=== PATIENT | male | born 1945 | race Caucasian/White ===

== ENCOUNTER → 2018-05-18 09:26 | Outpatient (CLI) | payer OTHER, SELFPAY ==
--- NOTE | 2018-05-18 09:33 | DI.RAD.S_ITS ---
PROCEDURE: XR CHEST 2V INDICATIONS: SHORTNESS OF BREATH TECHNIQUE: 2 views of the chest were acquired. COMPARISON: [facility], , CHEST 1 VIEW, 01/08/2016, 13:36. FINDINGS: Surgical changes and devices: There is a left Port-A-Cath, tip of which is projected over the SVC.. Lungs and pleura: No pleural effusions or pneumothorax. Lungs are clear. Mediastinum: Mediastinal contours are normal. Heart size is normal. Bones and chest wall: No suspicious bony abnormalities. Soft tissues appear unremarkable. IMPRESSION: No acute cardiopulmonary findings. Dictated by: Martha Elliott M.D. on 05/18/2018 at 12:16 Approved by: Martha Elliott M.D. on 05/18/2018 at 12:17
[2018-05-18 10:55] LABS: INR 1.1 (0.9-1.3); Prothrombin Time 11.7 SECONDS (10.1-12.7)
[2018-05-18 11:45] LABS: Vitamin B12 317 pg/mL (239-931)
== END ==
PROVIDERS: PCP Internal Medicine; Visit Provider Internal Medicine
DX: Z79.899 Other long term (current) drug therapy (principal); I48.1 Persistent atrial fibrillation; E53.8 Deficiency of other specified B group vitamins; R06.02 Shortness of breath
CPT/HCPCS: 36415; 71046; 82607; 84443; 85610

== ENCOUNTER → 2018-08-23 13:17 | Outpatient (CLI) | payer OTHER, SELFPAY ==
[2018-08-23 13:56] LABS: INR 5.4 (0.9-1.3); Prothrombin Time 60.4 SECONDS (10.1-12.7)
== END ==
PROVIDERS: Family Provider Internal Medicine Geriatric Medicine; Visit Provider Specialist
DX: I48.1 Persistent atrial fibrillation (principal)
CPT/HCPCS: 36415; 85610

== ENCOUNTER → 2018-11-09 12:07 | Outpatient (CLI) | payer OTHER, SELFPAY ==
--- NOTE | 2018-11-09 | DI.RAD.S_ITS ---
PROCEDURE: XR KNEE RT 3V INDICATIONS: BILATERAL KNEE PAIN TECHNIQUE: 3 views of the knee were acquired. COMPARISON: [facility], , KNEE 3V LEFT, 11/16/2012, 9:32. FINDINGS: Bones: No fractures or dislocations. No suspicious bony lesions. There is a mild degree of lateral compartment joint space narrowing consistent with degenerative osteoarthritis, equivalent to that seen at the patellofemoral joint Soft tissues: Small joint effusion. No suspicious soft tissue calcifications. 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 Small joint effusion. Dictated by: Guy Connelly M.D. on 11/09/2018 at 13:23 Approved by: Guy Connelly M.D. on 11/09/2018 at 13:24
== END ==
PROVIDERS: Family Provider Internal Medicine Geriatric Medicine; PCP Internal Medicine Infectious Disease; Visit Provider Internal Medicine Infectious Disease
DX: M25.561 Pain in right knee (principal); M25.562 Pain in left knee; G89.29 Other chronic pain; M17.11 Unilateral primary osteoarthritis, right knee
CPT/HCPCS: 73562

== ENCOUNTER → 2018-11-09 12:13 | Outpatient (CLI) | payer OTHER, SELFPAY ==
--- NOTE | 2018-11-09 | DI.RAD.S_ITS ---
PROCEDURE: XR KNEE LT 3V INDICATIONS: CHRONIC PAIN OF BOTH KNEES TECHNIQUE: 3 views of the knee were acquired. COMPARISON: [facility], , KNEE 3V LEFT, 11/16/2012, 9:32. FINDINGS: Bones: No fractures or dislocation but there is moderately severe medial compartment degenerative osteoarthritic joint space narrowing, and also a moderate degree of degenerative osteoarthritis at the lateral compartment and mild degenerative osteoarthritis at the patellofemoral joint. No suspicious bony lesions. Soft tissues: No joint effusion. No suspicious soft tissue calcifications. IMPRESSION: No trauma found. Tricompartmental degenerative knee joint osteoarthritis is most pronounced at the medial compartment, but no joint effusion or intra-articular loose body is found. Dictated by: Guy Connelly M.D. on 11/09/2018 at 13:24 Approved by: Guy Connelly M.D. on 11/09/2018 at 13:25
[2018-11-09 13:15] LABS: Add Manual Diff / Slide Review NO; Basophils Absolute Auto 0 /uL (0-100); Basophils Percent Auto 0.6 % (0-2); Eosinophils Absolute Auto 100 /uL (0-450); Hematocrit 38.5 % (41-53); Hemoglobin 12.7 g/dL (13.5-17.5); Lymphocytes Absolute Auto 800 /uL (1100-4500); Lymphocytes Percent Auto 18.7 % (25-40); Mean Corpuscular HGB Conc 32.9 % (30-36); Mean Corpuscular Volume 100.4 fL (80-100); Monocytes Absolute Auto 300 /uL (0-900); Monocytes Percent Auto 7.4 % (3-14); Neutrophils Absolute Auto 3100 /uL (1500-7000); Neutrophils Percent Auto 71.3 % (50-75); Platelet Count 153 X10^3/uL (150-400); Red Blood Cell Count 3.84 X10^6/uL (4.5-5.9); Red Cell Distribution Width 14.4 % (11.6-14.8); White Blood Cell Count 4.4 X10^3/uL (4.5-11.0)
[2018-11-09 15:49] LABS: Folate 9.4 ng/mL (2.76-20.0); Vitamin B12 357 pg/mL (239-931)
== END ==
PROVIDERS: Family Provider Internal Medicine Geriatric Medicine; PCP Internal Medicine Infectious Disease; Visit Provider Internal Medicine
DX: D51.9 Vitamin B12 deficiency anemia, unspecified (principal)
CPT/HCPCS: 36415; 73562; 82607; 82746; 85025

== ENCOUNTER 2018-11-13 09:46 | Emergency (ER) | payer OTHER, SELFPAY ==
--- NOTE | 2018-11-13 09:51 | DI.RAD.S_ITS ---
PROCEDURE: XR CHEST 2V INDICATIONS: cough for a week TECHNIQUE: 2 views of the chest were acquired. COMPARISON: [facility], CR, XR CHEST 2V, 05/18/2018, 9:48. FINDINGS: Surgical changes and devices: Left Port-A-Cath is unchanged. Lungs and pleura: No pleural effusions or pneumothorax. Lungs are clear. Mediastinum: Mediastinal contours are normal. Heart size is normal. Bones and chest wall: No suspicious bony abnormalities. Soft tissues appear unremarkable. IMPRESSION: No acute cardiopulmonary findings. Dictated by: Martha Elliott M.D. on 11/13/2018 at 10:02 Approved by: Martha Elliott M.D. on 11/13/2018 at 10:02
[2018-11-13 09:59] VITALS: PULSE 76; RESP 20; TEMP 36.6; O2SAT 97; BMI 48.5
[2018-11-13 10:03] VITALS: BP 156/85
--- NOTE | 2018-11-13 11:26 | ED_ITS ---
HPI - URI/Sore Throat General Chief Complaint: Upper Respiratory Symptoms Stated Complaint: BAD COUGH FOR A WEEK Time Seen by Provider: 11/13/18 09:51 Source: patient Mode of arrival: ambulatory Limitations: no limitations History of Present Illness HPI Narrative: Patient is a 73-year-old male here for evaluation of a cough that he has had for the past week. He states that his symptoms did start with a upper respiratory infection to include sinus congestion and a sore throat. He states that most of those symptoms have improved however still having some of the congestion. He states he still has the cough. Worse at night. His mother is in the hospital and was concerned about potentially exposing her to something. has not tried anything for his symptoms prior to arrival. Related Data Home Medications Medication Instructions Recorded Confirmed cyanocobalamin (vitamin B-12) 1,000 mcg IM QMONTH #0 09/05/17 Previous Rx's Medication Instructions Recorded ferrous sulfate [Iron (ferrous 325 mg PO TID #90 tab 09/06/17 sulfate)] warfarin [Coumadin] 0 PO QDAY #30 tab 09/06/17 azithromycin See Label Instructions .ROUTE 11/13/18 .COMPLEX #6 tab benzonatate [Tessalon Perles] 100 mg PO TID PRN #20 cap 11/13/18 codeine-guaifenesin [Guaifenesin 10 ml PO Q4-6H PRN #118 ml 11/13/18 AC] Allergies Allergy/AdvReac Type Severity Reaction Status Date / Time No Known Drug Allergies Allergy Verified 11/13/18 10:03 Review of Systems Constitutional Denies fever(s) and Denies headache(s) Eyes Denies change in vision ENT Ears, Nose, Mouth, and Throat: Denies headache(s), Reports nasal congestion, Denies nasal discharge, Denies tinnitus, Reports sinus pressure and Denies sore throat Cardiovascular Denies chest pain, Denies dyspnea and Denies dyspnea on exertion Respiratory Reports chest congestion, Reports cough, Denies dyspnea, Denies dyspnea on exertion and Denies wheezing Gastrointestinal Gastrointestinal: Denies abdominal pain, Denies nausea and Denies vomiting Integumentary/Breasts Denies rash Neurologic Denies behavioral changes and Denies headache(s) Psychiatric Denies behavioral changes Hematologic/Lymphatic Comments: On anticoagulation Allergic/Immunologic Denies wheezing PFSH Medical History Atrial fibrillation (Acute) Surgical History No pertinent past surgical history (Acute) Social History Smoking Status: Former smoker Exam Initial Vital Signs Initial Vital Signs: Vital Signs Temperature 97.8 F 11/13/18 09:59 Pulse Rate 76 11/13/18 09:59 Respiratory Rate 20 11/13/18 09:59 Pulse Oximetry 97 11/13/18 09:59 Const General: cooperative, healthy appearing, comfortable, well developed, well groomed and No acute distress Orientation: alert, awake and oriented x3 HENMT Head: normal to inspection and normocephalic Resp Effort & Inspection: normal respiratory effort Auscultation: clear to auscultation bilaterally Skin Lesions: no lesions Rashes: no rashes Neuro General: alert, awake and oriented x3 Extrem General: normal to inspection and capillary refill normal Course Orders Ordered: ED Orders 11/13/18 09:51 XR chest 2V Stat Vital Signs - 8 hr 11/13/18 12:10 Temperature 97.1 F L Pulse Rate 67 Respiratory Rate 18 Blood Pressure 125/83 Pulse Oximetry 97 MDM - URI/Sore Throat Imaging Data Chest x-ray: Radiologist's impression: PROCEDURE: XR CHEST 2V INDICATIONS: cough for a week TECHNIQUE: 2 views of the chest were acquired. COMPARISON: [facility], , XR CHEST 2V, 05/18/2018, 9:48. FINDINGS: Surgical changes and devices: Left Port-A-Cath is unchanged. Lungs and pleura: No pleural effusions or pneumothorax. Lungs are clear. Mediastinum: Mediastinal contours are normal. Heart size is normal. Bones and chest wall: No suspicious bony abnormalities. Soft tissues appear unremarkable. IMPRESSION: No acute cardiopulmonary findings. Dictated by: Martha Elliott M.D. on 11/13/2018 at 10:02 Approved by: Martha Elliott M.D. on 11/13/2018 at 10:[address] [facility] Narrative Medical decision making narrative: chest x-ray shows no signs of a definitive pneumonia. He has had approximately A week of symptoms. He has not tried any decongestants up to this point. after discussion with the patient. Informed him that I would recommend that he start with decongestants. Will also send him home with cough suppressant. asked him to give the symptoms of try for the next couple days and if his symptoms worsen or do not improve that he could fill the antibiotics and start taking them as directed. Patient expressed understanding and agreement this plan. He is given return precautions. Discharge Plan Departure Patient Disposition: Home Clinical Impression: Cough, Bronchitis Discharge Date/Time: 11/13/18 12:09 Interventions: ED Discharge Assessment Last Done: 11/13/18 12:10 Instructions: Cough (Alternative Therapy), Acute Bronchitis, Cough Activity Restrictions/Additional Instructions: Recommend you do the cough suppressant medicines for the next couple days. I would not expect this to completely resolve your cough but it should improve it. If your symptoms worsen or he develop new symptoms then you can start the antibiotics. Return to the emergency department for any new or worsening symptoms Prescriptions: New azithromycin 250 mg tablet See Label Instructions .ROUTE .COMPLEX Qty: 6 RF: 0 benzonatate [Tessalon Perles] 100 mg capsule 100 mg PO TID PRN (Reason: cough) Qty: 20 RF: 0 codeine-guaifenesin [Guaifenesin AC] 10-100 mg/5 mL liquid 10 ml PO Q4-6H PRN (Reason: cough) Qty: 118 RF: 0 No Action cyanocobalamin (vitamin B-12) Vitamin B-12 solution 1,000 mcg IM QMONTH Qty: 0 RF: 0 warfarin [Coumadin] 5 MG tablet PO QDAY Qty: 30 RF: 0 ferrous sulfate [Iron (ferrous sulfate)] 325 MG tablet 325 mg PO TID Qty: 90 RF: 0
[2018-11-13 12:10] VITALS: BP 125/83; PULSE 67; RESP 18; TEMP 36.2; O2SAT 97
== END 2018-11-13 12:09 | disposition home or self-care (01) ==
PROVIDERS: Emergency Provider Emergency Medicine; Family Provider Internal Medicine Geriatric Medicine; PCP Internal Medicine Infectious Disease
DX: J40 Bronchitis, not specified as acute or chronic (principal)
CPT/HCPCS: 71046; 99282; 99283

== ENCOUNTER → 2019-01-05 08:04 | Outpatient (CLI) | payer OTHER, SELFPAY ==
--- NOTE | 2019-01-05 | DI.RAD.S_ITS ---
PROCEDURE: XR THORACIC SPINE 3V INDICATIONS: ACUTE MIDLINE THORACIC BACK PAIN TECHNIQUE: 3 views of the thoracic spine were acquired. COMPARISON: None. FINDINGS: Bones: No fractures or dislocations. No suspicious bony lesions. Spinal degenerative change with flowing anterior osteophytes consistent with diffuse idiopathic skeletal stenosis. Soft tissues: No paravertebral stripe thickening. IMPRESSION: No acute bony abnormality of the thoracic spine. Dictated by: Bud Lyons M.D. on 01/05/2019 at 8:42 Approved by: Bud Lyons M.D. on 01/05/2019 at 8:43
== END ==
PROVIDERS: PCP Internal Medicine Infectious Disease; Visit Provider Internal Medicine
DX: M54.6 Pain in thoracic spine (principal)
CPT/HCPCS: 72072

== ENCOUNTER → 2020-03-28 17:03 | Outpatient (CLI) | payer OTHER, SELFPAY | PROVIDERS: Referring Provider Orthopaedic Surgery; Visit Provider Orthopaedic Surgery | DX: S22.059A Unspecified fracture of T5-T6 vertebra, initial encounter for closed fracture (principal); Z53.20 Procedure and treatment not carried out because of patient's decision for unspecified reasons ==

== ENCOUNTER → 2020-07-31 15:49 | Outpatient (CLI) | payer OTHER, SELFPAY ==
[2020-07-31 17:22] LABS: BUN Creatinine Ratio 21.6 (6-22); Blood Urea Nitrogen 29 mg/dL (9-20); Calcium 9.3 mg/dL (8.4-10.2); Carbon Dioxide 27 mmol/L (22-32); Chloride 105 mmol/L (98-107); Estimated Glomerular Filt Rate 52.3 mL/min (>60); Glucose 146 mg/dL (80-110); HEMOLYSIS < 15 (0-50); Potassium 4.1 mmol/L (3.4-5.1); Sodium 139 mmol/L (137-145)
== END ==
PROVIDERS: Referring Provider Physician Assistant; Visit Provider Physician Assistant
DX: Z51.81 Encounter for therapeutic drug level monitoring (principal); Z79.899 Other long term (current) drug therapy; I48.0 Paroxysmal atrial fibrillation
CPT/HCPCS: 36415; 80048

== ENCOUNTER → 2020-09-14 12:43 | Outpatient (CLI) | payer OTHER, SELFPAY ==
[2020-09-14 13:49] LABS: Hemoglobin A1C% w Est Avg Glu 7.9 % (4.0-6.0)
[2020-09-14 14:00] LABS: HEMOLYSIS < 15 (0-50); Iron 62 ug/dL (49-181)
[2020-09-14 14:04] LABS: C-Reactive Protein Quant 0.7 mg/dL (<1.0)
[2020-09-14 14:05] LABS: Erythrocyte Sedimentation Rate 18 MM/HR (0-15)
[2020-09-14 14:06] LABS: Rheumatoid Factor < 8.6 IU/mL (<12.0)
[2020-09-14 14:10] LABS: Percent Iron Saturation 16 % (20-50); Total Iron Binding Capacity 396 ug/dL (261-462); Transferrin 305 mg/dL (206-381)
[2020-09-14 14:32] LABS: Thyroid Stimulating Hormone 6.28 uIU/mL (0.47-4.68)
[2020-09-14 14:37] LABS: Ferritin 9 ng/mL (18-464)
[2020-09-14 15:07] LABS: Folate 10.8 ng/mL (2.76-20.0); Vitamin B12 288 pg/mL (239-931)
[2020-09-14 15:24] LABS: Vitamin D 25 Hydroxy (D3) 21.1 ng/mL (30.0-100.0)
[2020-09-15 07:49] LABS: Immunoglobulin A 387 mg/dL (61-437); Immunoglobulin G, Quantitative 866 mg/dL (603-1613)
[2020-09-17 20:51] LABS: CCP Antibodies IgG/IgA 7 units (0-19)
[2020-09-18 01:42] LABS: Vitamin B1 128.6 nmol/L (66.5-200.0)
[2020-09-18 12:29] LABS: Albumin 3.1 g/dL (2.9-4.4); Alpha-1-Globulin 0.2 g/dL (0.0-0.4); Alpha-2-Globulin 0.7 g/dL (0.4-1.0); Globulin Total 3.1 g/dL (2.2-3.9); Protein, Total 6.2 g/dL (6.0-8.5)
[2020-09-21 12:11] LABS: 1,25-Dihydroxy, Vitamin D-2 <10 pg/mL (.)
== END ==
PROVIDERS: Referring Provider Internal Medicine; Visit Provider Internal Medicine
DX: G62.9 Polyneuropathy, unspecified (principal); E53.8 Deficiency of other specified B group vitamins
CPT/HCPCS: 36415; 82306; 82607; 82652; 82728; 82746; 82784; 83036; 83540; 83550; 84155; 84165; 84425; 84443; 85651; 86140; 86200; 86430; 86592

== ENCOUNTER → 2021-01-26 10:31 | Outpatient (CLI) | payer OTHER, SELFPAY ==
[2021-01-26 12:11] LABS: Hemoglobin A1C% w Est Avg Glu 6.9 % (4.0-6.0)
[2021-01-26 12:16] LABS: HEMOLYSIS < 15 (0-50)
[2021-01-26 12:30] LABS: Erythrocyte Sedimentation Rate 14 MM/HR (0-15)
[2021-01-26 12:33] LABS: Total Iron Binding Capacity 414 ug/dL (261-462); Transferrin 320 mg/dL (206-381)
[2021-01-26 12:39] LABS: Vitamin D 25 Hydroxy (D3) 23.8 ng/mL (30.0-100.0)
[2021-01-26 12:53] LABS: Thyroid Stimulating Hormone 5.92 uIU/mL (0.47-4.68)
[2021-01-27 13:09] LABS: Iron 49 ug/dL (49-181); Percent Iron Saturation 12 % (20-50)
[2021-01-27 13:12] LABS: C-Reactive Protein Quant 0.9 mg/dL (<1.0)
[2021-01-27 14:09] LABS: RPR Screen Non Reactive (Non Reactive)
[2021-01-27 14:30] LABS: Folate 8.8 ng/mL (2.76-20.0); Vitamin B12 245 pg/mL (239-931)
[2021-01-29 13:55] LABS: Albumin 3.4 g/dL (2.9-4.4); Alpha-1-Globulin 0.2 g/dL (0.0-0.4); Alpha-2-Globulin 0.6 g/dL (0.4-1.0); Globulin Total 2.9 g/dL (2.2-3.9); Protein, Total 6.3 g/dL (6.0-8.5)
[2021-01-29 22:51] LABS: CCP Antibodies IgG/IgA 8 units (0-19)
[2021-01-31 18:27] LABS: Vitamin B1 102.3 nmol/L (66.5-200.0)
[2021-02-07 17:49] LABS: 1,25-Dihydroxy, Vitamin D-2 <10 pg/mL (.)
== END ==
PROVIDERS: Referring Provider Internal Medicine; Visit Provider Internal Medicine
DX: G62.9 Polyneuropathy, unspecified (principal); E53.8 Deficiency of other specified B group vitamins
CPT/HCPCS: 36415; 82306; 82607; 82652; 82746; 83036; 83540; 83550; 84155; 84165; 84425; 84443; 85651; 85652; 86140; 86200; 86431; 86592

== ENCOUNTER 2021-03-21 12:37 | Emergency (ER) | payer OTHER, SELFPAY ==
[2021-03-21 12:46] VITALS: BP 137/79; PULSE 60; RESP 14; TEMP 37.1; O2SAT 99; BMI 47.0
[2021-03-21 12:52] VITALS: PULSE 70
--- NOTE | 2021-03-21 12:56 | ED_ITS ---
HPI - General Adult General Chief complaint: Extremity Problem,Nontraumatic Stated complaint: Right Foot Somethings Wrong Swelling and Pain Time Seen by Provider: 03/21/21 12:46 Source: patient Mode of arrival: Wheelchair Limitations: no limitations History of Present Illness HPI narrative: Patient is a 75-year-old male here for evaluation of redness and discomfort to the top of his right foot. It is been occurring for at least the past several weeks if not longer. He has seen his primary doctor for this. He states that his primary doctor has ordered labs and an x-ray however there was some issue with getting this approved with insurance. He was sent to the emergency department for further evaluation. He does have lower extremity swelling which is not new. He is on Lasix. Is also on warfarin. He denies any trauma. He states that his primary doctor was concerned about a potential stress fracture. He states over the past couple days his discomfort is worsened to the point were he is having problems walking. Related Data Home Medications Medication Instructions Recorded Confirmed furosemide 20 mg PO QAM 03/21/21 03/21/21 warfarin See Rx Instructions .ROUTE .COMPLEX 03/21/21 03/21/21 Previous Rx's Medication Instructions Recorded cephalexin 500 mg PO QID 5 Days #20 cap 03/21/21 Allergies Allergy/AdvReac Type Severity Reaction Status Date / Time No Known Drug Allergies Allergy Verified 03/21/21 12:49 Review of Systems Constitutional Constitutional: Denies headache(s) ENT Ears, Nose, Mouth, and Throat: Denies headache(s) Cardiovascular Cardiovascular: Denies chest pain and Denies dyspnea Respiratory Respiratory: Denies dyspnea Gastrointestinal Gastrointestinal: Denies abdominal pain Integumentary/Breasts Comments: Redness and swelling to the right foot Neurologic Neurologic: Denies headache(s) Comments: Patient has neuropathy with this is not new Hematologic/Lymphatic On Anticoagulants: No Allergic/Immunologic Allergic/Immunologic: Reports system reviewed and no additional complaints, except as documented Patient History Medical History Atrial fibrillation Surgical History (Updated 11/13/18 @ 18:33 by Jag Gaytan DO) No pertinent past surgical history Social History Smoking Status: Former smoker Smoking Status: Former smoker alcohol intake frequency: 0-2 drinks per day Substance Use Type: does not use Exam Initial Vital Signs Initial Vital Signs: Vital Signs Temperature 98.8 F 03/21/21 12:46 Pulse Rate 60 03/21/21 12:46 Respiratory Rate 14 03/21/21 12:46 Blood Pressure 137/79 03/21/21 12:46 Pulse Oximetry 99 03/21/21 12:46 Const General: cooperative HENMT Head: normal to inspection and normocephalic Cardio Pulses: dorsalis pedis present bilaterally GI Palpation: soft Skin Other: Patient does have redness to the dorsum of the right foot. There is a 1/4 cm area of whiteness right in the center that appears to be more of a callus. It is warm to the touch. Patient also has some redness to the inside of the left foot were consistent with venous stasis changes. Neuro General: patient alert and patient awake Cognition: normal cognition Extrem General: edema Psych Appearance: grossly normal Course Orders Ordered: ED Orders 03/21/21 12:56 XR foot RT min 3V Stat Vital Signs Vital signs: Vital Signs - 8 hr 03/21/21 13:58 Pulse Rate 51 L Respiratory Rate 16 Blood Pressure 130/76 Pulse Oximetry 98 Medical Decision Making Imaging Data Extremity x-ray #1: Radiologist's Impression: [address] [id number] ReportSigned Patient: Saúl Wilson RMR#: [id number]: 7Acct:[id number]/Sex: 75 / MDate of Service: 03/21/21Loc: EDAccession Number: [id number] Procedure: XR foot RT min 3V Ordering Provider: Jag Gaytan D.O. PROCEDURE: XR FOOT RT MIN 3V INDICATIONS: Neuropathy, midfoot pain TECHNIQUE: 3 views of the foot were acquired. COMPARISON: None. FINDINGS: Bones: No fractures or dislocations. No suspicious bony lesions. Periarticular osteophyte formation at the tibiotalar, talonavicular, navicular cuneiform joints, as well as the 1st metatarsophalangeal joint, and the interphalangeal joints of the digits. Soft tissues: No tibiotalar joint effusion. Achilles tendon appears normal. IMPRESSION: Osteoarthritis. No acute fracture. No osseous lesion. If symptoms and/or clinical suspicion for pathology persist, further assessment with repeat, or advanced imaging (e.g., CT, MRI, or bone scan) may be helpful for further assessment. Dictated by: Eulalia Knutson M.D. on 03/21/2021 at 13:29 Approved by: Eulalia Knutson M.D. on 03/21/2021 at 13:30 [facility] Narrative Medical decision making narrative: The x-ray does not show any signs of fracture. He does have chronic lower extremity edema. The pain and redness the top of his right foot is been going on for least the past couple weeks but has been worsening over the past couple days. The redness on his left foot appears to be chronic venous stasis changes. His right foot redness could also be this however it is warm to the touch. I have low suspicion for abscess. The white area on the top of his what appears to be more of a callus. He does have neuropathy. Given his presentation, the warmth, redness, neuropathy, worsening discomfort I do feel that a course of antibiotics would be warranted in his case just to confirm that this is not an infection. Will start him on some antibiotics. He is instructed to contact his primary provider for follow-up. Expressed understanding and agreement. Discharge Plan Departure Patient Disposition: Home Clinical Impression: Cellulitis Instructions: DI for Cellulitis -- Adult Activity Restrictions/Additional Instructions: Like we discussed I am not 100% convinced that the redness on your foot is and infection however starting you on an antibiotic to see if there is any improvement would be an appropriate next step. Start taking it as directed. Contact your primary provider for follow-up. Return to the emergency department for any new or worsening symptoms. Prescriptions: New cephalexin 500 mg capsule 500 mg PO QID 5 Days Qty: 20 RF: 0 No Action warfarin 5 mg tablet See Rx Instructions .ROUTE .COMPLEX RF: 0 furosemide 20 mg Tablet 20 mg PO QAM RF: 0
[2021-03-21 13:58] VITALS: BP 130/76; PULSE 51; RESP 16; O2SAT 98
== END 2021-03-21 13:59 | disposition home or self-care (01) ==
PROVIDERS: Emergency Provider Emergency Medicine
DX: L03.115 Cellulitis of right lower limb (principal)
CPT/HCPCS: 73630; 99283

== ENCOUNTER → 2021-04-05 12:03 | Outpatient (CLI) | payer OTHER, SELFPAY ==
[2021-04-05 13:59] LABS: Cholesterol 142 mg/dL (140-199); HDL Cholesterol 52 mg/dL (40-60); HEMOLYSIS 18 (0-50); Iron 59 ug/dL (49-181); LDL Cholesterol Calculated 64 mg/dL (<100); Triglycerides 128 mg/dL (35-150)
[2021-04-05 14:10] LABS: Percent Iron Saturation 18 % (20-50); Total Iron Binding Capacity 334 ug/dL (261-462); Transferrin 253 mg/dL (206-381)
[2021-04-05 14:32] LABS: Thyroid Stimulating Hormone 4.32 uIU/mL (0.47-4.68)
[2021-04-05 15:06] LABS: Folate 8.4 ng/mL (2.76-20.0); Vitamin B12 257 pg/mL (239-931)
[2021-04-11 14:36] LABS: Vitamin B1 112.4 nmol/L (66.5-200.0)
== END ==
PROVIDERS: Podiatrist; PCP Internal Medicine; Referring Provider Internal Medicine; Visit Provider Internal Medicine
DX: M79.89 Other specified soft tissue disorders (principal); E11.9 Type 2 diabetes mellitus without complications; E66.01 Morbid (severe) obesity due to excess calories; Z68.42 Body mass index [BMI] 45.0-49.9, adult
CPT/HCPCS: 36415; 80061; 82607; 82746; 83036; 83540; 83550; 84425; 84443; 84550

== ENCOUNTER → 2021-07-25 11:02 | Outpatient (CLI) | payer OTHER, SELFPAY ==
[2021-07-25 11:52] LABS: Add Manual Diff / Slide Review NO; Basophils Absolute Auto 0 /uL (0-100); Basophils Percent Auto 0.7 % (0-2); Eosinophils Absolute Auto 100 /uL (0-450); Eosinophils Percent Auto 1.2 % (2-4); Hematocrit 38.4 % (41-53); Hemoglobin 12.4 g/dL (13.5-17.5); Lymphocytes Absolute Auto 1100 /uL (1100-4500); Mean Corpuscular HGB Conc 32.3 % (30-36); Mean Corpuscular Hemoglobin 30.3 PG (26-34); Mean Corpuscular Volume 93.8 fL (80-100); Monocytes Absolute Auto 300 /uL (0-900); Monocytes Percent Auto 6.6 % (3-14); Neutrophils Absolute Auto 3100 /uL (1500-7000); Neutrophils Percent Auto 67.5 % (50-75); Platelet Count 175 X10^3/uL (150-400); Red Blood Cell Count 4.09 X10^6/uL (4.5-5.9); Red Cell Distribution Width 16.5 % (11.6-14.8); White Blood Cell Count 4.5 X10^3/uL (4.5-11.0)
[2021-07-25 12:49] LABS: Alanine Aminotransferase 16 IU/L (<50); Albumin 3.6 g/dL (3.5-5.0); Albumin Globulin Ratio 1.4 (1.0-2.8); Alkaline Phosphatase 94 U/L (38-126); Aspartate Aminotransferase 19 IU/L (17-59); BUN Creatinine Ratio 19.2 (6-22); Bilirubin Total 0.3 mg/dL (0.2-1.3); Blood Urea Nitrogen 25 mg/dL (9-20); Calcium 8.9 mg/dL (8.4-10.2); Carbon Dioxide 27 mmol/L (22-32); Chloride 106 mmol/L (98-107); Globulin 2.6 g/dL (1.7-4.1); Glucose 198 mg/dL (80-110); HEMOLYSIS < 15 (0-50); Potassium 4.1 mmol/L (3.4-5.1); Sodium 139 mmol/L (137-145); Total Protein 6.2 g/dL (6.3-8.2)
[2021-07-25 13:13] LABS: TSH w/ Reflex to FT4 4.69 uIU/mL (0.47-4.68)
[2021-07-25 13:59] LABS: Free T4, Direct Thyroxine 1.32 ng/dL (0.78-2.19)
== END ==
PROVIDERS: PCP Internal Medicine; Referring Provider Internal Medicine; Visit Provider Internal Medicine
DX: R61 Generalized hyperhidrosis (principal)
CPT/HCPCS: 36415; 80053; 84439; 84443; 85025

== ENCOUNTER 2021-12-05 14:01 | Emergency (ER) | payer OTHER, SELFPAY ==
[2021-12-05] VITALS (8 sets, daily range): BP systolic 143–158; BP diastolic 71–80; PULSE 59–66; RESP 18; TEMP 36.1; O2SAT 95–99; BMI 49.3
[2021-12-05 14:48] LABS: Prothrombin Time 22.3 SECONDS (10.1-12.7)
[2021-12-05 14:49] LABS: Add Manual Diff / Slide Review NO; Basophils Absolute Auto 0 /uL (0-100); Basophils Percent Auto 0.7 % (0-2); Eosinophils Absolute Auto 100 /uL (0-450); Eosinophils Percent Auto 1.2 % (2-4); Hematocrit 34.2 % (41-53); Lymphocytes Absolute Auto 800 /uL (1100-4500); Lymphocytes Percent Auto 13.3 % (25-40); Mean Corpuscular HGB Conc 32.1 % (30-36); Mean Corpuscular Hemoglobin 30.4 PG (26-34); Mean Corpuscular Volume 94.6 fL (80-100); Monocytes Absolute Auto 400 /uL (0-900); Monocytes Percent Auto 7.4 % (3-14); Neutrophils Absolute Auto 4500 /uL (1500-7000); Neutrophils Percent Auto 77.4 % (50-75); Platelet Count 184 X10^3/uL (150-400); Red Blood Cell Count 3.61 X10^6/uL (4.5-5.9); Red Cell Distribution Width 15.4 % (11.6-14.8); White Blood Cell Count 5.8 X10^3/uL (4.5-11.0)
[2021-12-05 14:50] LABS: PTT Partial Thromboplastin Tim 38 SECONDS (26.4-36.2)
[2021-12-05 14:52] LABS: Alanine Aminotransferase 19 IU/L (<50); Albumin 3.6 g/dL (3.5-5.0); Albumin Globulin Ratio 1.2 (1.0-2.8); Alkaline Phosphatase 104 U/L (38-126); Aspartate Aminotransferase 42 IU/L (17-59); BUN Creatinine Ratio 11.7 (6-22); Bilirubin Total 0.5 mg/dL (0.2-1.3); Blood Urea Nitrogen 20 mg/dL (9-20); Calcium 8.7 mg/dL (8.4-10.2); Carbon Dioxide 30 mmol/L (22-32); Chloride 107 mmol/L (98-107); Estimated Glomerular Filt Rate 39.3 mL/min (>60); Globulin 3.1 g/dL (1.7-4.1); Glucose 140 mg/dL (80-110); HEMOLYSIS < 15 (0-50); Lipase 115 U/L (23-300); Potassium 3.8 mmol/L (3.4-5.1); Sodium 139 mmol/L (137-145); Total Protein 6.7 g/dL (6.3-8.2)
--- NOTE | 2021-12-05 14:55 | PC.NURSE ---
Pt stood from wheelchair at bedside, applied pressure to left foot and took steps toward stretcher, reported pain.
[2021-12-05 15:09] LABS: Procalcitonin 0.06 ng/mL (<0.5)
--- NOTE | 2021-12-05 15:15 | DI.RAD.S_ITS ---
PROCEDURE: XR FOOT LT 2V INDICATIONS: Left great to pain, foot pain TECHNIQUE: 3 views of the foot were acquired. COMPARISON: [facility], CR, XR FOOT RT MIN 3V, 03/21/2021, 12:59. FINDINGS: Bones: No fractures or dislocations. No suspicious bony lesions. Degenerative IP changes as well as calcaneal spurs are noted. Soft tissues: No tibiotalar joint effusion. Achilles tendon appears normal. IMPRESSION: IP arthritic change. No visualized acute fracture or dislocation. However, if clinical concern and/or pain persist, short interval imaging followup in 7-10 days is recommended, as occult injury cannot be definitively excluded. Dictated by: Daniela Velasco M.D. on 12/05/2021 at 16:12 Approved by: Daniela Velasco M.D. on 12/05/2021 at 16:13
--- NOTE | 2021-12-05 16:08 | ED.WOUNDLAC ---
HPI - Wound/Laceration <Emanuel Lopez PA-C - Last Filed: 12/05/21 19:18> General Chief Complaint: Wound/Laceration Stated Complaint: swollen, red lt foot; poss. infection Time Seen by Provider: 12/05/21 14:49 History of Present Illness HPI narrative: Patient is a 76-year-old male with a history of narcolepsy, prediabetes, gout, atrial fibrillation, peripheral neuropathy presenting to the emergency department today for an evaluation left foot pain. Patient states that his pain began approximately 4 days ago, noting it began after he fell out of his chair while dreaming. He states that he began to fall asleep due to his narcolepsy and attempted to kick someone in his dream causing him to fall out of his chair and landed on a hardwood floor. He states that he felt his left foot on bounce off of the wooden floor as a result of the fall and states that he has experienced increasing pain in his left foot since the incident. Of note, patient states that he had difficulty walking on the left lower extremity beginning yesterday. He states that he has also noticed that the redness and pain has gradually traveled up his foot toward his ankle. Patient states that he has not his head or lose consciousness as a result the fall. Patient denies fever, chills, chest pain, cough, shortness of breath, nausea, vomiting, diarrhea, abdominal pain, dysuria, hematuria, or any other concerning symptoms. No further concerns were voiced at this time. Related Data Home Medications Medication Instructions Recorded Confirmed furosemide 20 mg tablet 20 mg PO QAM 03/21/21 03/21/21 warfarin 5 mg tablet See Rx Instructions .ROUTE .COMPLEX 03/21/21 03/21/21 Previous Rx's Medication Instructions Recorded hydrocodone 5 mg-acetaminophen 325 1 tab PO BEDTIME PRN #15 tab 12/05/21 mg tablet doxycycline hyclate 100 mg capsule 100 mg PO BID #20 cap 12/08/21 hydrocodone 5 mg-acetaminophen 325 1 tab PO Q6H PRN #10 tab 12/08/21 mg tablet Allergies Allergy/AdvReac Type Severity Reaction Status Date / Time No Known Drug Allergies Allergy Verified 03/21/21 12:49 Review of Systems <Emanuel Lopez PA-C - Last Filed: 12/05/21 19:18> Constitutional Constitutional: Denies chills, Denies fatigue, Denies fever(s), Denies frequent falls, Denies lethargy and Denies weakness Eyes Eyes: Denies loss of vision ENT Ears, Nose, Mouth, and Throat: Denies dizziness and Denies neck pain Cardiovascular Cardiovascular: Denies chest pain, Denies irregular heart rhythm, Denies lightheadedness, Denies palpitations, Denies dyspnea, Denies dyspnea on exertion and Denies orthopnea Respiratory Respiratory: Denies cough, Denies dyspnea, Denies dyspnea on exertion and Denies wheezing Gastrointestinal Gastrointestinal: Denies abdominal pain, Denies change in bowel habits, Denies diarrhea, Denies nausea and Denies vomiting Genitourinary Genitourinary: Denies hematuria, Denies flank pain, Denies urinary incontinence and Denies urinary urgency Musculoskeletal Musculoskeletal: Denies back pain, Reports arthralgias (Left great toe), Denies muscle weakness, Denies neck pain, Denies numbness, Denies tingling and Reports other (Left foot pain) Integumentary/Breasts Skin/Breast: Denies pruritus, Denies erythema, Denies rash and Denies wounds Neurologic Neurologic: Denies behavioral changes, Denies confusion, Denies dizziness, Denies frequent falls, Denies loss of vision, Denies numbness, Denies tingling and Denies weakness Psychiatric Psychiatric: Denies behavioral changes and Denies confusion Endocrine Endocrine: Denies fatigue and Denies palpitations Allergic/Immunologic Allergic/Immunologic: Denies wheezing Patient History <Emanuel Lopez PA-C - Last Filed: 12/05/21 19:18> Medical History Atrial fibrillation Surgical History No pertinent past surgical history Social History Smoking Status: Former smoker Smoking Status: Former smoker alcohol intake frequency: 0-2 drinks per day Alcohol type: beer Substance Use Type: does not use Exam <Emanuel Lopez PA-C - Last Filed: 12/05/21 19:18> Narrative Exam Narrative: GENERAL: 76 year old patient appears stated age. Well-developed patient, in no acute distress. Large body habitus. HEAD: Atraumatic. Normocephalic. EYES: Pupils equal round and reactive. Extraocular motions intact. No scleral icterus. No injection or drainage. ENT: Nose without bleeding, purulent drainage. Throat without erythema, tonsillar hypertrophy or exudate. Airway patent. NECK: Trachea midline. Non tender CARDIOVASCULAR: Regular rate and rhythm without murmurs, gallops, or rubs. RESPIRATORY: Clear to auscultation. Breath sounds equal bilaterally. No wheezes, rales, or rhonchi. GASTROINTESTINAL: Abdomen soft, non-tender, nondistended. EXTREMITIES: No edema. Tenderness to palpation noted over the dorsal aspect of the left great toe with surrounding erythema. Erythema noted over the 1st and 2nd metatarsals of the left foot. Tenderness to palpation noted on the plantar aspect of the left foot at the base of the left great toe. No deformity noted. BACK: Nontender without deformity or crepitance. No flank tenderness. NEURO: AOx3. SKIN: No rash or erythema of visible areas Initial Vital Signs Initial Vital Signs: Vital Signs Temperature 97 F L 12/05/21 14:08 Pulse Rate 61 12/05/21 14:08 Respiratory Rate 18 12/05/21 14:08 Blood Pressure 156/71 H 12/05/21 14:08 Pulse Oximetry 99 12/05/21 14:08 <Dashawn Yan DO - Last Filed: 12/11/21 07:06> Initial Vital Signs Initial Vital Signs: Vital Signs Temperature 97 F L 12/05/21 14:08 Pulse Rate 61 12/05/21 14:08 Respiratory Rate 18 12/05/21 14:08 Blood Pressure 156/71 H 12/05/21 14:08 Pulse Oximetry 99 12/05/21 14:08 Course <Emanuel Lopez PA-C - Last Filed: 12/05/21 19:18> Course Course Narrative: CBC, CMP, PT/INR, PTT, blood cultures obtained. X-ray of left foot ordered. Orders Ordered: ED Orders 12/05/21 14:26 Complete Blood Count AUTO DIFF Stat Comprehensive Metabolic Panel Stat Lactate (Lactic Acid) Stat Lipase Stat Partial Thromboplastin Time Stat Procalcitonin Stat Prothrombin Time INR Stat 12/05/21 15:15 XR foot LT 2V Stat 12/05/21 15:27 Blood Culture Stat Vital Signs Vital signs: Vital Signs - 8 hr 12/05/21 14:08 12/05/21 14:55 12/05/21 15:00 Temperature 97 F L Pulse Rate 61 66 60 Respiratory Rate 18 Blood Pressure 156/71 H 143/72 H Pulse Oximetry 99 98 98 12/05/21 15:30 12/05/21 16:00 12/05/21 16:30 Temperature Pulse Rate 60 64 60 Respiratory Rate Blood Pressure Pulse Oximetry 97 96 95 12/05/21 17:00 12/05/21 17:14 Temperature Pulse Rate 61 59 L Respiratory Rate 18 Blood Pressure 158/80 H Pulse Oximetry 97 97 <Dashawn Yan DO - Last Filed: 12/11/21 07:06> Orders Ordered: ED Orders 12/05/21 14:26 Complete Blood Count AUTO DIFF Stat Comprehensive Metabolic Panel Stat Lactate (Lactic Acid) Stat Lipase Stat Partial Thromboplastin Time Stat Procalcitonin Stat Prothrombin Time INR Stat 12/05/21 15:15 XR foot LT 2V Stat 12/05/21 15:27 Blood Culture Stat Vital Signs Vital signs: Vital Signs - 8 hr 12/05/21 14:08 12/05/21 14:55 12/05/21 15:00 Temperature 97 F L Pulse Rate 61 66 60 Respiratory Rate 18 Blood Pressure 156/71 H 143/72 H Pulse Oximetry 99 98 98 12/05/21 15:30 12/05/21 16:00 12/05/21 16:30 Temperature Pulse Rate 60 64 60 Respiratory Rate Blood Pressure Pulse Oximetry 97 96 95 12/05/21 17:00 12/05/21 17:14 Temperature Pulse Rate 61 59 L Respiratory Rate 18 Blood Pressure 158/80 H Pulse Oximetry 97 97 MDM - Wound/Laceration <Emanuel Lopez PA-C - Last Filed: 12/05/21 19:18> Lab Data Result diagrams: 12/05/21 14:26 12/05/21 14:26 Labs: Lab Results 12/05/21 12/05/21 12/05/21 Range/Units 14:26 14:26 14:26 WBC 5.8 (4.5-11.0) X10^3/uL RBC 3.61 L (4.5-5.9) X10^6/uL Hgb 11.0 L (13.5-17.5) g/dL Hct 34.2 L (41-53) % MCV 94.6 (80-100) fL MCH 30.4 (26-34) PG MCHC 32.1 (30-36) % RDW 15.4 H (11.6-14.8) % Plt Count 184 (150-400) X10^3/uL Neut % (Auto) 77.4 H (50-75) % Lymph % (Auto) 13.3 L (25-40) % Randall % (Auto) 7.4 (3-14) % Eos % (Auto) 1.2 L (2-4) % Baso % (Auto) 0.7 (0-2) % Neut # (Auto) 4500 (8995-1852) /uL Lymph # (Auto) 800 L (4335-7617) /uL Randall # (Auto) 400 (0-900) /uL Eos # (Auto) 100 (0-450) /uL Baso # (Auto) 0 (0-100) /uL PT (10.1-12.7) SECONDS INR (0.9-1.3) APTT (26.4-36.2) SECONDS Sodium 139 (137-145) mmol/L Potassium 3.8 (3.4-5.1) mmol/L Chloride 107 (98-107) mmol/L Carbon Dioxide 30 (22-32) mmol/L BUN 20 (9-20) mg/dL Creatinine 1.71 H (0.66-1.25) mg/dL Estimated GFR 39.3 L (>60) mL/min BUN/Creatinine Ratio 11.7 (6-22) Glucose 140 H (80-110) mg/dL Lactate 1.0 (0.7-2.1) mmol/L Calcium 8.7 (8.4-10.2) mg/dL Total Bilirubin 0.5 (0.2-1.3) mg/dL AST 42 (17-59) IU/L ALT 19 (<50) IU/L Alkaline Phosphatase 104 (38-126) U/L Total Protein 6.7 (6.3-8.2) g/dL Albumin 3.6 (3.5-5.0) g/dL Globulin 3.1 (1.7-4.1) g/dL Albumin/Globulin Ratio 1.2 (1.0-2.8) Lipase 115 (23-300) U/L Procalcitonin 0.06 (<0.5) ng/mL 12/05/21 Range/Units 14:26 WBC (4.5-11.0) X10^3/uL RBC (4.5-5.9) X10^6/uL Hgb (13.5-17.5) g/dL Hct (41-53) % MCV (80-100) fL MCH (26-34) PG MCHC (30-36) % RDW (11.6-14.8) % Plt Count (150-400) X10^3/uL Neut % (Auto) (50-75) % Lymph % (Auto) (25-40) % Randall % (Auto) (3-14) % Eos % (Auto) (2-4) % Baso % (Auto) (0-2) % Neut # (Auto) (1819-9362) /uL Lymph # (Auto) (3827-0165) /uL Randall # (Auto) (0-900) /uL Eos # (Auto) (0-450) /uL Baso # (Auto) (0-100) /uL PT 22.3 H (10.1-12.7) SECONDS INR 2.0 H (0.9-1.3) APTT 38 H (26.4-36.2) SECONDS Sodium (137-145) mmol/L Potassium (3.4-5.1) mmol/L Chloride (98-107) mmol/L Carbon Dioxide (22-32) mmol/L BUN (9-20) mg/dL Creatinine (0.66-1.25) mg/dL Estimated GFR (>60) mL/min BUN/Creatinine Ratio (6-22) Glucose (80-110) mg/dL Lactate (0.7-2.1) mmol/L Calcium (8.4-10.2) mg/dL Total Bilirubin (0.2-1.3) mg/dL AST (17-59) IU/L ALT (<50) IU/L Alkaline Phosphatase (38-126) U/L Total Protein (6.3-8.2) g/dL Albumin (3.5-5.0) g/dL Globulin (1.7-4.1) g/dL Albumin/Globulin Ratio (1.0-2.8) Lipase (23-300) U/L Procalcitonin (<0.5) ng/mL Imaging Data Extremity x-ray #1: Radiologist's Impression: PROCEDURE:? XR FOOT LT 2V ? INDICATIONS:? Left great to pain, foot pain ? TECHNIQUE:? 3 views of the foot were acquired.? ? COMPARISON:? [facility], CR, XR FOOT RT MIN 3V, 03/21/2021, 12:59. ? FINDINGS:? ? Bones:? No fractures or dislocations.? No suspicious bony lesions.? Degenerative IP changes as well as calcaneal spurs are noted. ? Soft tissues:? No tibiotalar joint effusion.? Achilles tendon appears normal.? ? ? IMPRESSION:? IP arthritic change. No visualized acute fracture or dislocation. However, if clinical concern and/or pain persist, short interval imaging followup in 7-10 days is recommended, as occult injury cannot be definitively excluded. ? ? Dictated by: Daniela Velasco M.D. on 12/05/2021 at 16:12 ? ? Approved by: Daniela Velasco M.D. on 12/05/2021 at 16:13 MDM Narrative Medical decision making narrative: To consider fracture versus dislocation versus sprain versus strain versus septic joint versus diabetic foot ulcer. Overall, physical examination and x-ray imaging obtained in the emergency department today were reassuring. Discussed results of x-ray with patient informed him that no acute abnormality was identified. Additionally, I discussed lab study results with patient informed him that it does not appear that he is experiencing an infection at this time. I recommended the patient follow-up with his primary care provider within the next 2-3 days for further evaluation. Patient expresses understanding and agrees to plan. He states that this time he would like to be discharged home and is stable for discharge. Strict return precautions were discussed prior to discharge. <Dashawn Yan DO - Last Filed: 12/11/21 07:06> Lab Data Labs: Lab Results 12/05/21 12/05/21 12/05/21 Range/Units 14:26 14:26 14:26 WBC 5.8 (4.5-11.0) X10^3/uL RBC 3.61 L (4.5-5.9) X10^6/uL Hgb 11.0 L (13.5-17.5) g/dL Hct 34.2 L (41-53) % MCV 94.6 (80-100) fL MCH 30.4 (26-34) PG MCHC 32.1 (30-36) % RDW 15.4 H (11.6-14.8) % Plt Count 184 (150-400) X10^3/uL Neut % (Auto) 77.4 H (50-75) % Lymph % (Auto) 13.3 L (25-40) % Randall % (Auto) 7.4 (3-14) % Eos % (Auto) 1.2 L (2-4) % Baso % (Auto) 0.7 (0-2) % Neut # (Auto) 4500 (7777-5163) /uL Lymph # (Auto) 800 L (2240-3165) /uL Randall # (Auto) 400 (0-900) /uL Eos # (Auto) 100 (0-450) /uL Baso # (Auto) 0 (0-100) /uL PT (10.1-12.7) SECONDS INR (0.9-1.3) APTT (26.4-36.2) SECONDS Sodium 139 (137-145) mmol/L Potassium 3.8 (3.4-5.1) mmol/L Chloride 107 (98-107) mmol/L Carbon Dioxide 30 (22-32) mmol/L BUN 20 (9-20) mg/dL Creatinine 1.71 H (0.66-1.25) mg/dL Estimated GFR 39.3 L (>60) mL/min BUN/Creatinine Ratio 11.7 (6-22) Glucose 140 H (80-110) mg/dL Lactate 1.0 (0.7-2.1) mmol/L Calcium 8.7 (8.4-10.2) mg/dL Total Bilirubin 0.5 (0.2-1.3) mg/dL AST 42 (17-59) IU/L ALT 19 (<50) IU/L Alkaline Phosphatase 104 (38-126) U/L Total Protein 6.7 (6.3-8.2) g/dL Albumin 3.6 (3.5-5.0) g/dL Globulin 3.1 (1.7-4.1) g/dL Albumin/Globulin Ratio 1.2 (1.0-2.8) Lipase 115 (23-300) U/L Procalcitonin 0.06 (<0.5) ng/mL 12/05/21 Range/Units 14:26 WBC (4.5-11.0) X10^3/uL RBC (4.5-5.9) X10^6/uL Hgb (13.5-17.5) g/dL Hct (41-53) % MCV (80-100) fL MCH (26-34) PG MCHC (30-36) % RDW (11.6-14.8) % Plt Count (150-400) X10^3/uL Neut % (Auto) (50-75) % Lymph % (Auto) (25-40) % Randall % (Auto) (3-14) % Eos % (Auto) (2-4) % Baso % (Auto) (0-2) % Neut # (Auto) (0206-6178) /uL Lymph # (Auto) (3929-9896) /uL Randall # (Auto) (0-900) /uL Eos # (Auto) (0-450) /uL Baso # (Auto) (0-100) /uL PT 22.3 H (10.1-12.7) SECONDS INR 2.0 H (0.9-1.3) APTT 38 H (26.4-36.2) SECONDS Sodium (137-145) mmol/L Potassium (3.4-5.1) mmol/L Chloride (98-107) mmol/L Carbon Dioxide (22-32) mmol/L BUN (9-20) mg/dL Creatinine (0.66-1.25) mg/dL Estimated GFR (>60) mL/min BUN/Creatinine Ratio (6-22) Glucose (80-110) mg/dL Lactate (0.7-2.1) mmol/L Calcium (8.4-10.2) mg/dL Total Bilirubin (0.2-1.3) mg/dL AST (17-59) IU/L ALT (<50) IU/L Alkaline Phosphatase (38-126) U/L Total Protein (6.3-8.2) g/dL Albumin (3.5-5.0) g/dL Globulin (1.7-4.1) g/dL Albumin/Globulin Ratio (1.0-2.8) Lipase (23-300) U/L Procalcitonin (<0.5) ng/mL Discharge Plan Departure Patient Disposition: Home Clinical Impression: Acute pain of left foot, Arthritis of foot, left Instructions: DI for Osteoarthritis Activity Restrictions/Additional Instructions: *You have been diagnosed with acute pain of left foot, left foot arthritis *What to do: *Please continue to take your regular medications as directed. [ ] New medication prescriptions sent to your pharmacy: [ ] [X] New medication written as a paper prescription: Hydrocodone [ ] No new medications given X-ray imaging obtained in the emergency department today did not show signs of acute bony abnormality, however it did show signs of arthritis in the left foot. I recommend keeping the foot elevated and applying ice to the painful areas as needed to reduce pain and swelling. Additionally, I recommend applying topical Voltaren gel to the painful area. This topical gel can be obtained at your preferred pharmacy. I have prescribed a short course of pain medications to help alleviate your discomfort. Please follow-up with your primary care provider within the next to 3 days for further evaluation. Do not hesitate to return to the emergency department if you experience worsening pain, increased swelling, increasing warmth from the joint, fever, or any other concerning symptoms. *Please follow up with your primary care provider in 2-3 days, call for an appointment. Let them know you were seen in the Emergency Department and that we ask that you be seen in follow up. We will electronically transmit a record of today's note if your PCP is in our system *If you do not have a primary care provider please contact the [facility] Resource line at [phone]. They will ask some questions about your medical history and help get you set up with a doctor in the community. *Return to Emergency Department if you should have any new, worsening or concerning symptoms, such as [fever greater than 101 F, shaking chills, worsening pain, persistent vomiting or other bothersome symptoms] Prescriptions: New hydrocodone-acetaminophen 5-325 mg tablet 1 tab PO BEDTIME PRN (Reason: pain) Qty: 15 0RF No Action warfarin 5 mg tablet See Rx Instructions .ROUTE .COMPLEX 0RF Label Comments: TAKE 1 TAB BY MOUTH ON THURSDAY AND THURSDAY AND 1 AND 1/2 TABS ALL O...(REFER TO PRESCRIPTION NOTES). Rx Instructions: TAKE 1 TAB BY MOUTH ON THURSDAY AND THURSDAY AND 1 AND 1/2 TABS ALL OTHER DAYS furosemide 20 mg Tablet 20 mg PO QAM 0RF doxycycline hyclate 100 mg capsule 100 mg PO BID Qty: 20 0RF hydrocodone-acetaminophen 5-325 mg tablet 1 tab PO Q6H PRN (Reason: pain) Qty: 10 0RF Referrals: Elizabeth Morrison MD [Primary Care Provider] - <Dashawn Yan DO - Last Filed: 12/11/21 07:06> [facility]: I was immediately available in the department for consultation. This documentation has been reviewed and I agree with assessment and plan. Supervised by Dashawn Yan DO
== END 2021-12-05 17:25 | disposition home or self-care (01) ==
PROVIDERS: Emergency Medicine; Emergency Provider Physician Assistant; PCP Internal Medicine
DX: M19.072 Primary osteoarthritis, left ankle and foot (principal); Z87.891 Personal history of nicotine dependence
CPT/HCPCS: 36415; 73620; 80053; 83605; 83690; 84145; 85025; 85610; 85730; 87040; 99284

== ENCOUNTER 2021-12-08 10:19 | Emergency (ER) | payer OTHER, SELFPAY ==
[2021-12-08 10:47] VITALS: BP 144/78; PULSE 59; RESP 18; TEMP 36.6; O2SAT 98; BMI 51.7
--- NOTE | 2021-12-08 10:54 | ED.EXTPRO ---
HPI - Extremity Problem General Chief complaint: Extremity Problem,Nontraumatic Stated complaint: Infection in left foot Time Seen by Provider: 12/08/21 10:50 Source: patient Mode of arrival: Wheelchair History of Present Illness HPI Narrative: Patient is a 76-year-old male history of pre diabetes, gout, atrial fibrillation on warfarin peripheral neuropathy of presenting today for the 2nd time with a left foot infection. He states has been there for the last week. He was seen and evaluated here on 12/05/2021 he had blood work and x-rays done at that time. Thought to be just blister but did have some redness. He says last evening he must of bumped it there was some bleeding was some drainage from it in his noted some worsening redness in his made a come back to the emergency department today. He has not had any fever chills. He continues to have pain he was previously prescribed Early Branch which she says was helping. He thinks it originally started from wearing bad shoes and it was rubbing but he has had the shoes for numerous years and has never problem. He denies any other symptoms at this time Related Data Home Medications Medication Instructions Recorded Confirmed furosemide 20 mg tablet 20 mg PO QAM 03/21/21 03/21/21 warfarin 5 mg tablet See Rx Instructions .ROUTE .COMPLEX 03/21/21 03/21/21 Previous Rx's Medication Instructions Recorded hydrocodone 5 mg-acetaminophen 325 1 tab PO BEDTIME PRN #15 tab 12/05/21 mg tablet doxycycline hyclate 100 mg capsule 100 mg PO BID #20 cap 12/08/21 hydrocodone 5 mg-acetaminophen 325 1 tab PO Q6H PRN #10 tab 12/08/21 mg tablet Allergies Allergy/AdvReac Type Severity Reaction Status Date / Time No Known Drug Allergies Allergy Verified 03/21/21 12:49 Review of Systems Review of Systems Narrative: GENERAL: Denies chills, fatigue, malaise, fever, sweats, travel HEENT: Denies sinus pain, ear pain, sore throat, difficulty swallowing, neck pain RESPIRATORY: Denies dyspnea, cough, wheezing, hemoptysis, sputum. CARDIOVASCULAR: Denies chest pain, palpitations, orthopnea, edema GASTROINTESTINAL: Denies nausea, vomiting, abdominal pain, diarrhea, constipation, melena. : Denies dysuria, frequency, incontinence, hematuria, urinary retention, flank pain. MUSCULOSKELETAL: Denies weakness, joint pain, or bony pain SKIN: See HPI NEUROLOGIC: Denies weakness, dizziness, headache, numbness, change in speech, confusion PSYCHIATRIC: No concerning psychosocial issues. 12 point review of systems is negative except for those stated above and HPI Patient History Medical History Atrial fibrillation Surgical History No pertinent past surgical history Social History Smoking Status: Former smoker Smoking Status: Former smoker alcohol intake frequency: 0-2 drinks per day Alcohol type: beer Substance Use Type: does not use Exam Initial Vital Signs Initial Vital Signs: Vital Signs Temperature 97.9 F 12/08/21 10:47 Pulse Rate 59 L 12/08/21 10:47 Respiratory Rate 18 12/08/21 10:47 Blood Pressure 144/78 H 12/08/21 10:47 Pulse Oximetry 98 12/08/21 10:47 GENERAL: Alert 76-year-old male BMI 51 CARDIOVASCULAR: peripheral pulses in tact, cap refill <2 sec RESPIRATORY: No respiratory distress, speaks in full sentences without difficulty EXTREMITIES: Normal range of motion, no clubbing or edema. Neurovascularly intact NEUROLOGICAL: Cranial nerves II through XII grossly intact. Normal gait and speech. SKIN: Left foot on the medial side at the great metatarsal there is an wound laterally that is 1 cm x 1 cm open minimal drainage there is some mild surrounding erythema that does extend onto the top of his foot. Course Orders Ordered: ED Orders 12/08/21 11:05 Wound Culture and Gram Stain Stat Vital Signs Vital signs: Vital Signs - 8 hr 12/08/21 10:47 12/08/21 11:40 Temperature 97.9 F Pulse Rate 59 L 69 Respiratory Rate 18 14 Blood Pressure 144/78 H 104/58 L Pulse Oximetry 98 97 MDM - Extremity (Nontraumatic) MDM Narrative Medical decision making narrative: Patient seen previously had blood cultures in workup however wound culture was not done. Wound culture is now sent. He states he gets his INR checked weekly he is due to have a sleep test possibly checking his INR every week. I discussed with him antibiotics can change his INR which he is aware of. At this time will start him on doxycycline monitor it and put proper dressing over it At this time he appears well, he has a small wound on his left foot at this time I do not see need to repeat full workup or imaging. Discharge Plan Departure Patient Disposition: Home Clinical Impression: Cellulitis Qualifiers: Site of cellulitis: extremity Site of cellulitis of extremity: lower extremity Laterality: left Qualified Code(s): L03.116 - Cellulitis of left lower limb Activity Restrictions/Additional Instructions: *You have been diagnosed with cellulitis and wound *What to do: At this time please check wound every day. Monitor for worsening redness or drainage. The bandage that is placed is water proof and can be kept on for 4-5 days. Please continue to have your INR checked antibiotics can change the INR. *Continue to take medications as directed--> sent to [facility] Doxycycline 100 mg twice a day for 7 days Early Branch 1 tablet every 6 hours if needed for severe pain *Follow up with your primary care provider in 2-3 days or call [phone] *Return to ER if you should have increasing pain swelling redness, fever or any new, worsening or concerning symptoms CONTROLLED SUBSTANCE DISCHARGE (Narcotoic/benzodiazepine/Flexeril/Phenergan) 1. You have been prescribed narcotic medications, it does have acetaminophen/Tylenol/paracetamol in it, DO NOT TAKE MORE THAN 4,00mg in 24 hours of Tylenol. TRAMADOL DOES NOT CONTAIN TYLENOL 2. Please understand that we cannot provide further refills of narcotics, benzodiazepines or controlled substances through the ED and her pain management will need to be through your provider. 3. While on these medications you cannot drive or operate heavy machinery. 4. You cannot sign legal documents or perform any duties such as this. 5. As long as you're taking opiate pain medications he should also be taking a stool softener such as Colace, Dulcolax, MiraLAX or prune juice, to help avoid constipation. Prescriptions: New doxycycline hyclate 100 mg capsule 100 mg PO BID Qty: 20 0RF hydrocodone-acetaminophen 5-325 mg tablet 1 tab PO Q6H PRN (Reason: pain) Qty: 10 0RF No Action warfarin 5 mg tablet See Rx Instructions .ROUTE .COMPLEX 0RF Label Comments: TAKE 1 TAB BY MOUTH ON THURSDAY AND THURSDAY AND 1 AND 1/2 TABS ALL O...(REFER TO PRESCRIPTION NOTES). Rx Instructions: TAKE 1 TAB BY MOUTH ON THURSDAY AND THURSDAY AND 1 AND 1/2 TABS ALL OTHER DAYS furosemide 20 mg Tablet 20 mg PO QAM 0RF hydrocodone-acetaminophen 5-325 mg tablet 1 tab PO BEDTIME PRN (Reason: pain) Qty: 15 0RF Referrals: Elizabeth Morrison MD [Primary Care Provider] -
[2021-12-08 11:40] VITALS: BP 104/58; PULSE 69; RESP 14; O2SAT 97
== END 2021-12-08 11:41 | disposition home or self-care (01) ==
PROVIDERS: Emergency Provider Emergency Medicine; PCP Internal Medicine
DX: L03.116 Cellulitis of left lower limb (principal)
CPT/HCPCS: 87070; 87075; 87077; 87147; 87185; 87186; 87205; 99281; 99282

== ENCOUNTER → 2022-04-23 10:48 | Outpatient (CLI) | payer OTHER, SELFPAY ==
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
--- NOTE | 2022-04-23 11:13 | DI.RAD.S_ITS ---
PROCEDURE: XR CHEST 2V INDICATIONS: HEART FAILURE TECHNIQUE: 2 views of the chest were acquired. COMPARISON: [facility], CR, XR CHEST 2V, 11/13/2018, 9:54. FINDINGS: Surgical changes and devices: None. Lungs and pleura: Small right-sided pleural fluid collection. There is increased interstitial prominence cephalization of pulmonary vasculature concerning for CHF. Mediastinum: Mediastinal contours are normal. Heart heart is enlarged Bones and chest wall: No suspicious bony abnormalities. Soft tissues appear unremarkable. IMPRESSION: CHF. Small right-sided pleural effusion. Dictated by: Lucinda San MD, PhD on 04/23/2022 at 16:19 Approved by: Lucinda San MD, PhD on 04/23/2022 at 16:21
[2022-04-23 12:35] LABS: Add Manual Diff / Slide Review NO; Basophils Absolute Auto 0 /uL (0-100); Basophils Percent Auto 0.7 % (0-2); Eosinophils Absolute Auto 0 /uL (0-450); Eosinophils Percent Auto 1.2 % (2-4); Hematocrit 34.6 % (41-53); Hemoglobin 11.1 g/dL (13.5-17.5); Lymphocytes Absolute Auto 600 /uL (1100-4500); Lymphocytes Percent Auto 15.7 % (25-40); Mean Corpuscular HGB Conc 31.9 % (30-36); Mean Corpuscular Hemoglobin 29.3 PG (26-34); Mean Corpuscular Volume 91.8 fL (80-100); Monocytes Absolute Auto 300 /uL (0-900); Monocytes Percent Auto 7.3 % (3-14); Neutrophils Absolute Auto 3000 /uL (1500-7000); Neutrophils Percent Auto 75.1 % (50-75); Platelet Count 174 X10^3/uL (150-400); Red Blood Cell Count 3.77 X10^6/uL (4.5-5.9); Red Cell Distribution Width 17.4 % (11.6-14.8)
[2022-04-23 13:21] LABS: Alanine Aminotransferase 17 IU/L (<50); Albumin 3.5 g/dL (3.5-5.0); Albumin Globulin Ratio 1.2 (1.0-2.8); Alkaline Phosphatase 123 U/L (38-126); Aspartate Aminotransferase 17 IU/L (17-59); BUN Creatinine Ratio 15.4 (6-22); Bilirubin Total 0.6 mg/dL (0.2-1.3); Blood Urea Nitrogen 20 mg/dL (9-20); Calcium 8.7 mg/dL (8.4-10.2); Carbon Dioxide 31 mmol/L (22-32); Chloride 106 mmol/L (98-107); Estimated Glomerular Filt Rate 58 mL/min (>60); Glucose 168 mg/dL (80-110); HEMOLYSIS < 15 (0-50); Potassium 4.5 mmol/L (3.4-5.1); Sodium 141 mmol/L (137-145); Total Protein 6.5 g/dL (6.3-8.2); Uric Acid 3.9 mg/dL (3.5-8.5)
[2022-04-23 13:26] LABS: NT-proBNP (BNP-Adult 18+) 1100 pg/mL (<125)
[2022-04-23 13:44] LABS: Free T4, Direct Thyroxine 1.29 ng/dL (0.78-2.19)
[2022-04-23 13:58] LABS: Thyroid Stimulating Hormone 7.58 uIU/mL (0.47-4.68)
[2022-04-23 14:07] LABS: Vitamin B12 253 pg/mL (239-931)
[2022-04-25 05:12] LABS: Methylmalonic Acid,Serum 403 nmol/L (0-378)
== END ==
PROVIDERS: PCP Internal Medicine; Referring Provider Internal Medicine Geriatric Medicine; Visit Provider Internal Medicine Geriatric Medicine
DX: M19.072 Primary osteoarthritis, left ankle and foot (principal); M77.32 Calcaneal spur, left foot; M21.622 Bunionette of left foot; M85.872 Other specified disorders of bone density and structure, left ankle and foot; T45.1X5A Adverse effect of antineoplastic and immunosuppressive drugs, initial encounter; G62.0 Drug-induced polyneuropathy; M79.605 Pain in left leg; M10.00 Idiopathic gout, unspecified site; J90 Pleural effusion, not elsewhere classified; I50.20 Unspecified systolic (congestive) heart failure; R06.00 Dyspnea, unspecified; E11.22 Type 2 diabetes mellitus with diabetic chronic kidney disease; N18.30 Chronic kidney disease, stage 3 unspecified
CPT/HCPCS: 36415; 71046; 73620; 80053; 82607; 83880; 83921; 84439; 84443; 84550; 85025; 86140

== ENCOUNTER → 2022-06-20 15:49 | Outpatient (CLI) | payer OTHER, SELFPAY ==
[2022-06-20 16:26] LABS: Albumin 3.4 g/dL (3.5-5.0); BUN Creatinine Ratio 21.3 (6-22); Blood Urea Nitrogen 29 mg/dL (9-20); Calcium 8.7 mg/dL (8.4-10.2); Carbon Dioxide 32 mmol/L (22-32); Chloride 103 mmol/L (98-107); Estimated Glomerular Filt Rate 54 mL/min (>60); Glucose 123 mg/dL (80-110); HEMOLYSIS < 15 (0-50); Phosphorous 3.1 mg/dL (2.3-3.7); Potassium 4.3 mmol/L (3.4-5.1); Sodium 137 mmol/L (137-145)
== END ==
PROVIDERS: PCP Internal Medicine; Referring Provider Internal Medicine Geriatric Medicine; Visit Provider Internal Medicine
DX: I50.23 Acute on chronic systolic (congestive) heart failure (principal)
CPT/HCPCS: 36415; 80069; 83735

== ENCOUNTER → 2022-11-14 15:49 | Outpatient (CLI) | payer OTHER, SELFPAY ==
[2022-11-14 18:01] LABS: Add Manual Diff / Slide Review NO; Basophils Absolute Auto 0 /uL (0-100); Basophils Percent Auto 0.7 % (0-2); Eosinophils Absolute Auto 100 /uL (0-450); Eosinophils Percent Auto 1.8 % (2-4); Hemoglobin 12.4 g/dL (13.5-17.5); Lymphocytes Absolute Auto 1200 /uL (1100-4500); Lymphocytes Percent Auto 22.3 % (25-40); Mean Corpuscular HGB Conc 32.6 % (30-36); Mean Corpuscular Hemoglobin 29.3 PG (26-34); Mean Corpuscular Volume 89.9 fL (80-100); Monocytes Absolute Auto 300 /uL (0-900); Monocytes Percent Auto 6.6 % (3-14); Neutrophils Absolute Auto 3600 /uL (1500-7000); Neutrophils Percent Auto 68.6 % (50-75); Platelet Count 186 X10^3/uL (150-400); Red Blood Cell Count 4.23 X10^6/uL (4.5-5.9); Red Cell Distribution Width 17.4 % (11.6-14.8); White Blood Cell Count 5.2 X10^3/uL (4.5-11.0)
[2022-11-14 19:23] LABS: Alanine Aminotransferase 18 IU/L (<50); Albumin 3.4 g/dL (3.5-5.0); Albumin Globulin Ratio 1.2 (1.0-2.8); Alkaline Phosphatase 111 U/L (38-126); Aspartate Aminotransferase 20 IU/L (17-59); BUN Creatinine Ratio 14.1 (6-22); Bilirubin Total 0.3 mg/dL (0.2-1.3); Blood Urea Nitrogen 20 mg/dL (9-20); Calcium 8.7 mg/dL (8.4-10.2); Carbon Dioxide 22 mmol/L (22-32); Chloride 100 mmol/L (98-107); Estimated Glomerular Filt Rate 52 mL/min (>60); Globulin 2.9 g/dL (1.7-4.1); Glucose 266 mg/dL (80-110); HEMOLYSIS < 15 (0-50); Potassium 4.3 mmol/L (3.4-5.1); Sodium 136 mmol/L (137-145); Total Protein 6.3 g/dL (6.3-8.2)
[2022-11-14 20:12] LABS: Vitamin B12 177 pg/mL (239-931)
== END ==
PROVIDERS: PCP Internal Medicine; Referring Provider Internal Medicine; Visit Provider Internal Medicine
DX: I48.19 Other persistent atrial fibrillation (principal); I50.20 Unspecified systolic (congestive) heart failure
CPT/HCPCS: 36415; 80053; 82607; 85025

== ENCOUNTER 2022-11-21 06:55 | Emergency (ER) | payer OTHER, SELFPAY ==
[2022-11-21 07:07] VITALS: BP 150/93; PULSE 97; RESP 19; TEMP 36.5; O2SAT 98; BMI 48.4
--- NOTE | 2022-11-21 07:14 | DI.CT.S_ITS ---
PROCEDURE: CT CERVICAL SPINE WO CON INDICATIONS: ? fall, bruising head TECHNIQUE: Noncontrast 3 mm thick sections acquired from the skull base to the T4 level. Sagittal and coronal reformats were then constructed. For radiation dose reduction, the following was used: automated exposure control, adjustment of mA and/or kV according to patient size. COMPARISON: None. FINDINGS: Image quality: Excellent. Bones: No fractures or dislocations. Visualized superior ribs are intact. Cervical spondylosis with prominent bilateral multilevel facet arthropathy. There is also multilevel uncovertebral hypertrophy resulting in multilevel foraminal narrowing. Soft tissues: Prevertebral soft tissues are normal in thickness. No paravertebral hematomas. No apical pneumothoraces. IMPRESSION: 1. No evidence acute cervical fracture or dislocation. 2. Cervical spondylosis. Dictated by: Bdu Lyons M.D. on 11/21/2022 at 8:01 Approved by: Bud Lyons M.D. on 11/21/2022 at 8:03
--- NOTE | 2022-11-21 07:14 | DI.CT.S_ITS ---
PROCEDURE: CT HEAD/BRAIN WO CON INDICATIONS: bruising head TECHNIQUE: Noncontrast 4.5 mm thick angled axial sections acquired from the foramen magnum to the vertex, with coronal and sagittal reformats. For radiation dose reduction, the following was used: automated exposure control, adjustment of mA and/or kV according to patient size. COMPARISON: None. FINDINGS: Image quality: Excellent. CSF spaces: Basal cisterns are patent. No extra-axial fluid collections. The ventricles are symmetric in size and shape. Brain: No intracranial bleeds or masses. There is cerebral volume loss for age, with resultant ventricular and sulcal prominence. There are periventricular and deep white matter chronic small vessel ischemic changes. There is intracranial internal carotid artery atherosclerosis. Skull and face: Prominent cephalohematoma, eccentric to the left over the forehead. Calvarium and visualized facial bones appear intact, without suspicious lesions. Sinuses: Visualized sinuses and mastoids are clear. IMPRESSION: 1. Cephalohematoma. 2. No evidence acute intracranial process. Dictated by: Bud Lyons M.D. on 11/21/2022 at 7:59 Approved by: Bud Lyons M.D. on 11/21/2022 at 8:01
--- NOTE | 2022-11-21 07:17 | DI.RAD.S_ITS ---
PROCEDURE: XR CHEST 1V INDICATIONS: head injury TECHNIQUE: One view of the chest was acquired. COMPARISON: [facility], CT, CT CHEST WITHOUT CONTRAST, 08/01/2021, 14:32. [facility], CT, CT IVP, 08/01/2021, 14:34. [facility], CR, XR CHEST 2V, 04/23/2022, 11:07. FINDINGS: Surgical changes and devices: None. Lungs and pleura: Question left basilar pneumonia. No pleural effusions or pneumothorax. Mediastinum: Mediastinal contours appear normal. Cardiomegaly. Bones and chest wall: No suspicious bony lesions. Overlying soft tissues appear unremarkable. IMPRESSION: Question left basilar pneumonia. Comment: Progress films are recommended until clear. Dictated by: Bud Lyons M.D. on 11/21/2022 at 8:16 Approved by: Bud Lyons M.D. on 11/21/2022 at 8:19
--- NOTE | 2022-11-21 08:30 | DI.CT.S_ITS ---
PROCEDURE: CT FACIAL BONES WO CON INDICATIONS: fall, head injury TECHNIQUE: Noncontrast 2.5 mm thick axial images acquired from the mandible through the frontal sinuses, with coronal and sagittal reformatting. For radiation dose reduction, the following was used: automated exposure control, adjustment of mA and/or kV according to patient size. COMPARISON: None. FINDINGS: Image quality: Excellent. Bones and teeth: Orbital rao are intact. Sinus rao show no fracture or deformity. Nasal bones and septum are intact. Visualized portions of the mandible demonstrate no fractures or subluxation. Zygomatic arches are intact. Pterygoid plates are intact. Visualized portions of the skull base and auditory canals are intact. Sinuses: Paranasal sinuses are aerated, without fluid levels, mucosal thickening, or mucoceles. Mastoid air cells are aerated. Soft tissues: There is a large left frontal subgaleal hematoma. No edema or masses. No enlarged lymph nodes. No soft tissue lacerations or debris. Vascular: Visualized vascular structures appear normal in the absence of contrast. Bony vascular foramina and canals are intact. IMPRESSION: 1. Large left subgaleal hematoma. No underlying bony abnormality. Dictated by: Martha Elliott M.D. on 11/21/2022 at 9:07 Approved by: Martha Elliott M.D. on 11/21/2022 at 9:29
--- NOTE | 2022-11-21 08:31 | ED.FALL ---
HPI - Fall General Chief Complaint: Fall Stated Complaint: woke up to face bruised and cut up Time Seen by Provider: 11/21/22 07:14 Source: patient Mode of arrival: Ambulatory Limitations: no limitations History of Present Illness HPI Narrative: This is a 77-year-old male on Eliquis for atrial fibrillation, patient states he woke up this morning with some blood on his face and a large bruise. He states he went to sleep in his recliner chair. He is thinks he must have gotten up or fallen forward and hit his desk but he does not recall and woke up seated in his chair. Patient states he does take Ambien every night he states he has been taking it for at least a decade. He went to bed without any bruising or changes. He states he has a mild headache, he denies any neck or back pain. No vision changes. No nausea or vomiting. No numbness, tingling or weakness. He has been able to ambulate without issue. No chest pain or shortness of breath. Patient denies any bowel or bladder incontinence. He states he had labs on Thursday and does not wish to pursue additional labs today. Patient denies any allergies to drugs. He is unsure of his tetanus status. Former smoker, does drink alcohol, no illicit. Patient states he has not appointment to day with his physician to follow-up. Related Data Home Medications Medication Instructions Recorded Confirmed furosemide 20 mg tablet 20 mg PO QAM 03/21/21 03/21/21 warfarin 5 mg tablet See Rx Instructions .Route .COMPLEX 03/21/21 03/21/21 Previous Rx's Medication Instructions Recorded hydrocodone 5 mg-acetaminophen 325 1 tab PO BEDTIME PRN pain #15 tabs 12/05/21 mg tablet doxycycline hyclate 100 mg capsule 100 mg PO BID #20 caps 12/08/21 hydrocodone 5 mg-acetaminophen 325 1 tab PO Q6H PRN pain #10 tabs 12/08/21 mg tablet Allergies Allergy/AdvReac Type Severity Reaction Status Date / Time No Known Drug Allergies Allergy Verified 03/21/21 12:49 Review of Systems Review of Systems ROS Unobtainable: All systems reviewed & are unremarkable except as noted in HPI and below Patient History Medical History Atrial fibrillation Surgical History No pertinent past surgical history Social History Smoking Status: Former smoker Smoking Status: Former smoker alcohol intake frequency: 0-2 drinks per day Alcohol type: beer Substance Use Type: does not use Exam Narrative Exam Narrative: GEN: Patient appears in mild distress. HEAD: Patient has a large hematoma on his anterior forehead with bilateral raccoon sign, no damon sign. Patient has an abrasion over the hematoma on his anterior forehead that is about 0.25 cm in size with some mild ooze but is superficial, NECK: Nontender, painless range of motion, trachea midline Negative Nexus criteria, there is no midline line tenderness, distracting injury, altered mental status, neuro deficit, recent EtOH. EYES: PERRLA, EOMI ENT: External inspection normal, trachea is midline, TM's are normal no hemotypanum, Nares are clear, no septal hematoma, no dental or oral injury, airway is normal and with normal occlusion, No bony tenderness RESP: Chest is nontender and has symmetric movement, no ecchymosis, breath sounds are normal no crackles, wheezes or rales CVS: Heart sounds are normal, no murmur noted, No JVD. ABG/GI: Nontender, soft, normal bowel sounds, no distention, no organomegaly, pelvic rock is negative NEURO: Oriented AOx3, neuro is grossly intact, sensation and motor is normal all 4 extremities moving, cranial nerves II through XII are intact, GCS is 15 PSYCH: Normal mood and affect SKIN: Intact, warm and dry, no crepitus and without decubitus BACK: No CVA tenderness, no vertebral tenderness, no step-off's, no crepitus EXT: Atraumatic for some mild bruising on the right forearm. Hips are nontender, no pedal edema, normal color and temperature, normal range of motion of extremities with normal tendon exam, 2+ pulses in all four extremities Initial Vital Signs Initial Vital Signs: Vital Signs Temperature 97.7 F 11/21/22 07:07 Pulse Rate 97 H 11/21/22 07:07 Respiratory Rate 19 11/21/22 07:07 Blood Pressure 150/93 H 11/21/22 07:07 Pulse Oximetry 98 11/21/22 07:07 Oxygen Delivery Method 11/21/22 07:07 Scores GCS [place] coma scale eye opening: Spontaneous [place] coma scale verbal response: Orientated [place] coma scale motor response: Obey commands [place] coma scale total score: 15 Course Orders Ordered: Discontinued Medications Acetaminophen/Codeine Phosphate (Codeine/Acetaminophen 30/300 Tablet) 1 tab PO NOW ONE Stop: 11/21/22 09:40 Last Admin: 11/21/22 09:54 Dose: 1 tab Documented By: RONIT Diphtheria/Tetanus/Acell Pertussis (Tet,Diph,Pertuss(Acell),Vac/Pf 0.5 Ml Syringe) 0.5 ml IM .ONCE ONE Stop: 11/21/22 08:31 Last Admin: 11/21/22 09:10 Dose: 0.5 ml Documented By: RONIT Vital Signs Vital signs: Vital Signs - 8 hr 11/21/22 07:07 Temperature 97.7 F Pulse Rate 97 H Respiratory Rate 19 Blood Pressure 150/93 H Pulse Oximetry 98 Oxygen Delivery Method Room Air MDM - Fall Imaging Data CT scan - head: Radiologist's Impression: [place] [address] CT Scan Report Signed Patient: Saúl Wilson MR#: [id number] : 1945 Acct:[id number] Age/Sex: 77 / M Date of Service: 11/21/22 Loc: Accession Number: [id number] ?? Procedure: CT head/brain wo con Ordering Provider: Taty Deng D.O. PROCEDURE:? CT HEAD/BRAIN WO CON ? INDICATIONS:? bruising head ? TECHNIQUE:? Noncontrast 4.5 mm thick angled axial sections acquired from the foramen magnum to the vertex, with coronal and sagittal reformats.? For radiation dose reduction, the following was used:? automated exposure control, adjustment of mA and/or kV according to patient size.? ? COMPARISON:? None. ? FINDINGS:? Image quality:? Excellent.? ? CSF spaces:? Basal cisterns are patent.? No extra-axial fluid collections.? The ventricles are symmetric in size and shape.? ? Brain:? No intracranial bleeds or masses.? There is cerebral volume loss for age, with resultant ventricular and sulcal prominence.? There are periventricular and deep white matter chronic small vessel ischemic changes.? There is intracranial internal carotid artery atherosclerosis.? ? Skull and face:? Prominent cephalohematoma, eccentric to the left over the forehead.? Calvarium and visualized facial bones appear intact, without suspicious lesions.? ? Sinuses:? Visualized sinuses and mastoids are clear.? ? IMPRESSION:? ? 1. Cephalohematoma. ? 2. No evidence acute intracranial process.? ? ? Dictated by: Bud Lyons M.D. on 11/21/2022 at 7:59 ? ? Approved by: Bud Lyons M.D. on 11/21/2022 at 8:01?? CT facial bones: Radiologist's Impression: [address] [address] [address] Scan Report Signed Patient: Saúl Wilson MR#: [id number] : 1945 Acct:[id number] Age/Sex: 77 / M Date of Service: 11/21/22 Loc: ED Accession Number: [id number] ?? Procedure: CT facial bones wo con Ordering Provider: Taty Deng D.O. PROCEDURE:? CT FACIAL BONES WO CON ? INDICATIONS:? fall, head injury ? TECHNIQUE:? Noncontrast 2.5 mm thick axial images acquired from the mandible through the frontal sinuses, with coronal and sagittal reformatting.? For radiation dose reduction, the following was used:? automated exposure control, adjustment of mA and/or kV according to patient size.? ? COMPARISON:? None. ? FINDINGS:? Image quality:? Excellent.? ? Bones and teeth:? Orbital rao are intact.? Sinus rao show no fracture or deformity.? Nasal bones and septum are intact.? Visualized portions of the mandible demonstrate no fractures or subluxation.? Zygomatic arches are intact.? Pterygoid plates are intact.? Visualized portions of the skull base and auditory canals are intact.? ? Sinuses:? Paranasal sinuses are aerated, without fluid levels, mucosal thickening, or mucoceles.? Mastoid air cells are aerated.? ? Soft tissues:? There is a large left frontal subgaleal hematoma. No edema or masses.? No enlarged lymph nodes.? No soft tissue lacerations or debris.? ? Vascular:? Visualized vascular structures appear normal in the absence of contrast.? Bony vascular foramina and canals are intact.? ? IMPRESSION:? ? 1. Large left subgaleal hematoma.? No underlying bony abnormality. ? ? Dictated by: Martha Elliott M.D. on 11/21/2022 at 9:07 ? ? Approved by: Martha Elliott M.D. on 11/21/2022 at 9:29?? CT - cervical spine: Radiologist's Impression: Close Face CT (Signed) Martha Elliott - 11/21/22 Chest X-Ray (Signed) Bud Lyons - 11/21/[address] (Signed) Bud Lyons - 11/21/[address] (Signed) Bud Lyons - 11/21/22 Foot X-Ray (Signed) Anna Latham - 04/23/22 Chest X-Ray (Signed) Lucinda San - 04/23/22 Foot X-Ray (Signed) Daniela Velasco - 12/05/21 Foot X-Ray (Signed) Eulalia Knutson - 03/21/21 Thoracic Spine X-Ray (Signed) Bud Lyons - 01/05/19 Chest X-Ray (Signed) Martha Elliott - 11/13/18 Knee X-Ray (Signed) Guy Connelly - 11/09/18 Knee X-Ray (Signed) Guy Connelly - 11/09/18 Chest X-Ray (Signed) Martha Elliott - 05/18/18 Launch?[place] [address] CT Scan Report Signed Patient: Saúl Wilson MR#: [id number] : 1945 Acct:[id number] Age/Sex: 77 / M Date of Service: 11/21/22 Loc: ED Accession Number: [id number] ?? Procedure: CT cervical spine wo con Ordering Provider: Taty Deng D.O. PROCEDURE:? CT CERVICAL SPINE WO CON ? INDICATIONS:? ? fall, bruising head ? TECHNIQUE:? Noncontrast 3 mm thick sections acquired from the skull base to the T4 level.? Sagittal and coronal reformats were then constructed.? For radiation dose reduction, the following was used:? automated exposure control, adjustment of mA and/or kV according to patient size.? ? COMPARISON:? None. ? FINDINGS:? Image quality:? Excellent.? ? Bones:? No fractures or dislocations.? Visualized superior ribs are intact.? Cervical spondylosis with prominent bilateral multilevel facet arthropathy.? There is also multilevel uncovertebral hypertrophy resulting in multilevel foraminal narrowing. ? Soft tissues:? Prevertebral soft tissues are normal in thickness.? No paravertebral hematomas.? No apical pneumothoraces.? ? ? IMPRESSION:? ? 1. No evidence acute cervical fracture or dislocation. ? 2. Cervical spondylosis. ? Dictated by: Bud Lyons M.D. on 11/21/2022 at 8:01 ? ? Approved by: Bud Lyons M.D. on 11/21/2022 at 8:03?? Chest x-ray: Radiologist's Impression: Close Face CT (Signed) Martha Elliott - 11/21/22 Chest X-Ray (Signed) Bud Lyons - 11/21/[address] (Signed) Bud Lyons - 11/21/[address] (Signed) Bud Lyons - 11/21/22 Foot X-Ray (Signed) Anna Latham - 04/23/22 Chest X-Ray (Signed) Lucinda San - 04/23/22 Foot X-Ray (Signed) Daniela Velasco - 12/05/21 Foot X-Ray (Signed) Eulalia Knutson - 03/21/21 Thoracic Spine X-Ray (Signed) Bud Lyons - 01/05/19 Chest X-Ray (Signed) Martha Elliott - 11/13/18 Knee X-Ray (Signed) Guy Connelly - 11/09/18 Knee X-Ray (Signed) Guy Connelly - 11/09/18 Chest X-Ray (Signed) Martha Elliott - 05/18/18 Launch?[address] [address] XRay Report Signed Patient: Saúl Wilson MR#: [id number] : 1945 Acct:[id number] Age/Sex: 77 / M Date of Service: 11/21/22 Loc: ED Accession Number: [id number] ?? Procedure: XR chest 1V Ordering Provider: Taty Deng D.O. PROCEDURE:? XR CHEST 1V ? INDICATIONS:? head injury ? TECHNIQUE:? One view of the chest was acquired.? ? COMPARISON:? [facility], CT, CT CHEST WITHOUT CONTRAST, 08/01/2021, 14:32.? [facility], CT, CT IVP, 08/01/2021, 14:34.? [facility], CR, XR CHEST 2V, 04/23/2022, 11:07. ? FINDINGS:? ? Surgical changes and devices:? None.? ? Lungs and pleura:? Question left basilar pneumonia.? No pleural effusions or pneumothorax.? ? Mediastinum:? Mediastinal contours appear normal.? Cardiomegaly. ? Bones and chest wall:? No suspicious bony lesions.? Overlying soft tissues appear unremarkable.? ? IMPRESSION:? Question left basilar pneumonia. ? Comment: Progress films are recommended until clear. ? ? Dictated by: Bud Lyons M.D. on 11/21/2022 at 8:16? ?? ECG Data Attestation: I personally reviewed and interpreted this ECG as follows: Interpretation: Sinus rhythm rate of 61 NV 198 QRS 86 QTC of 453. No acute ST elevation or depression. [facility] Narrative Medical decision making narrative: This is a 77-year-old male with obvious hematoma small abrasion raccoon eyes who had what appears to be suspected fall last night while taking Ambien. Patient does not recall the events. You had head CT C-spine which shows hematoma but no intracranial bleed. Facial bones were added on these are negative for fracture. Chest x-ray shows questionable left basilar pneumonia but patient is not been symptomatic. Patient very politely defers any labs he had labs drawn on the shows baseline chronic kidney disease with a creatinine 1.42 priors from May were 1.36, sodium is 136 glucose was 266 with normal LFTs, CBC showed white count of 5.2 platelets of 186 and hemoglobin of 12, patient had EKG shows appears to be sinus rhythm with a first-degree AV block, patient does have known AFib he is on Eliquis and is anticoagulated. Patient is alert, appropriate does not have any other red flag symptoms currently. We did update his tetanus he did not require laceration repair of the abrasion area was cleansed and bandage was applied. Discussed with patient return precautions. Discussed there is possibility this was not just a fall. Patient feels comfortable ambulated appropriately. He is follow-up today with his primary care at 3:00 p.m. and is going to follow up with them. Discharge Plan Departure Patient Disposition: Home Clinical Impression: Abrasion of forehead, Traumatic hematoma of forehead Instructions: Closed Head Injury Activity Restrictions/Additional Instructions: Follow-up with your physician at your appointment today. Hope the rest of your day goes much better. Your tetanus was updated today. You have a large hematoma under the forehead but no fractures to the bones of your face or bleeding inside your brain or skull fractures. You have a small abrasion on your forehead keep the area clean and dry and wash daily with soap and water or visibly dirty it should heal in the next . week Please return for severe headaches, altered mental status, confusion, new neck or back pain, chest pain or shortness of breath, passing out, persistent vomiting, new numbness tingling or weakness or other new or concerning changes. Prescriptions: No Action warfarin 5 mg tablet See Rx Instructions .ROUTE .COMPLEX Label Comments: TAKE 1 TAB BY MOUTH ON THURSDAY AND THURSDAY AND 1 AND 1/2 TABS ALL O...(REFER TO PRESCRIPTION NOTES). Rx Instructions: TAKE 1 TAB BY MOUTH ON THURSDAY AND THURSDAY AND 1 AND 1/2 TABS ALL OTHER DAYS furosemide 20 mg Tablet 20 mg PO QAM doxycycline hyclate 100 mg capsule 100 mg PO BID Qty: 20 0RF hydrocodone-acetaminophen 5-325 mg tablet 1 tab PO Q6H PRN (Reason: pain) Qty: 10 0RF hydrocodone-acetaminophen 5-325 mg tablet 1 tab PO BEDTIME PRN (Reason: pain) Qty: 15 0RF Referrals: Elizabeth Morrison MD [Primary Care Provider] - Stand Alone Forms: Patient Portal/API
[2022-11-21] MEDS: TET,DIPH,PERTUSS(ACELL),VAC/PF 0.5 ML SYRINGE IM (09:10)
[2022-11-21] MEDS: CODEINE/ACETAMINOPHEN 30/300 TABLET 1 TAB PO (09:54)
[2022-11-21 10:00] VITALS: BP 125/67
[2022-11-21 10:02] VITALS: PULSE 89
== END 2022-11-21 10:03 | disposition home or self-care (01) ==
PROVIDERS: Emergency Provider Emergency Medicine; PCP Internal Medicine
DX: S00.83XA Contusion of other part of head, initial encounter (principal); S00.91XA Abrasion of unspecified part of head, initial encounter; Z79.899 Other long term (current) drug therapy; I48.91 Unspecified atrial fibrillation; Z79.01 Long term (current) use of anticoagulants; W19.XXXA Unspecified fall, initial encounter; R79.89 Other specified abnormal findings of blood chemistry; Z23 Encounter for immunization
CPT/HCPCS: 70450; 70486; 71045; 72125; 90471; 93005; 99283; 99284; 90715

== ENCOUNTER 2022-12-08 15:50 | Day surgery (SDC) | payer OTHER, SELFPAY ==
[2022-12-08] VITALS (17 sets, daily range): BP systolic 122–183; BP diastolic 56–101; PULSE 56–101; RESP 10–22; TEMP 35.7–36.8; O2SAT 93–98; BMI 45.6
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
[2022-12-08] MEDS: CEFAZOLIN 2 GM/100 ML PREMIX 100 ML IV (16:09)
[2022-12-08 16:11] LABS: Add Manual Diff / Slide Review NO; Basophils Absolute Auto 100 /uL (0-100); Basophils Percent Auto 1.2 % (0-2); Eosinophils Absolute Auto 100 /uL (0-450); Eosinophils Percent Auto 1.2 % (2-4); Hematocrit 39.1 % (41-53); Hemoglobin 12.8 g/dL (13.5-17.5); Lymphocytes Absolute Auto 2500 /uL (1100-4500); Lymphocytes Percent Auto 37.7 % (25-40); Mean Corpuscular HGB Conc 32.7 % (30-36); Mean Corpuscular Hemoglobin 29.9 PG (26-34); Mean Corpuscular Volume 91.4 fL (80-100); Monocytes Absolute Auto 400 /uL (0-900); Monocytes Percent Auto 5.9 % (3-14); Neutrophils Absolute Auto 3600 /uL (1500-7000); Platelet Count 215 X10^3/uL (150-400); Red Blood Cell Count 4.28 X10^6/uL (4.5-5.9); Red Cell Distribution Width 17.9 % (11.6-14.8); White Blood Cell Count 6.6 X10^3/uL (4.5-11.0)
[2022-12-08] MEDS: HYDROMORPHONE 0.5 MG INJ IV (16:14)
--- NOTE | 2022-12-08 16:19 | PC.NURSE ---
[place] [employer] dispatch notified @ [phone].
[2022-12-08 16:20] LABS: INR 1.3 (0.9-1.3); Prothrombin Time 14.4 SECONDS (10.1-12.7)
[2022-12-08 16:24] LABS: Alanine Aminotransferase 20 IU/L (<50); Albumin 4.2 g/dL (3.5-5.0); Albumin Globulin Ratio 1.3 (1.0-2.8); Alkaline Phosphatase 132 U/L (38-126); Aspartate Aminotransferase 25 IU/L (17-59); BUN Creatinine Ratio 17.5 (6-22); Bilirubin Total 0.6 mg/dL (0.2-1.3); Blood Urea Nitrogen 27 mg/dL (9-20); Calcium 9.2 mg/dL (8.4-10.2); Carbon Dioxide 23 mmol/L (22-32); Chloride 102 mmol/L (98-107); Estimated Glomerular Filt Rate 47 mL/min (>60); Globulin 3.2 g/dL (1.7-4.1); Glucose 262 mg/dL (80-110); HEMOLYSIS < 15 (0-50); Potassium 4.2 mmol/L (3.4-5.1); Sodium 136 mmol/L (137-145); Total Protein 7.4 g/dL (6.3-8.2)
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
[2022-12-08 16:44] LABS: COVID19 -Nasal RAPID Negative (Negative)
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
--- NOTE | 2022-12-08 17:27 | PC.NURSE ---
Pt discharged to surgery. Left hand wound bleeding remains controlled, feeling in distal fingers, CMS intact. Pt continues aaox3/3, airway intact, breathing even and unlabored, no acute distress noted.
[2022-12-08] MEDS: LACTATED RINGERS 1,000 ML 42 ML IV ×2 (17:42→19:22)
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
--- NOTE | 2022-12-08 18:03 | SUR.OPER ---
Supine on padded OR bed, head on pillow, arms secured on padded arm boards at <90 degrees abduction, legs uncrossed, safety belt at thigh, tape over blanket over lower legs. Operative arm on hand table. Pt positioned per direction and supervision of Dr Downing.
[2022-12-08] MEDS: HYDROMORPHONE 2 MG INJ IV ×2 (19:10→19:22)
[2022-12-08] MEDS: OXYCODONE IR 5 MG TABLET PO (19:40)
== END 2022-12-08 20:14 | disposition home or self-care (01) ==
LOC: ED 17:47 → AC 20:03 → OR 12-09 08:00
PROVIDERS: Emergency Provider Emergency Medicine; PCP Internal Medicine; Referring Provider Emergency Medicine; Visit Provider Orthopaedic Surgery Orthopaedic Surgery of the Spine
PROC: (CPT 20103; principal; 2022-12-08 18:30)
DX: S61.432A Puncture wound without foreign body of left hand, initial encounter (principal); M79.642 Pain in left hand; Z20.822 Contact with and (suspected) exposure to COVID-19; I48.91 Unspecified atrial fibrillation
CPT/HCPCS: 20103; 36415; 73130; 80053; 85025; 85610; 87635; 93005; 93010; 96365; 96375; 96376; 99285; 99291; 99292; C9803; J0330; J0690; J1170; J2405; J2704; J3010